=== PATIENT | female | born 1990 | race Caucasian/White ===

== ENCOUNTER 2024-01-14 20:57 | Emergency (ER) | payer MEDICAID ==
[~2024-01-14] VITALS: Ht 152.4 cm; Wt 63.5 kg
[~2024-01-14 20:57] MED LIST: CEPH-588 PO; ROBAC PO
[2024-01-14 22:03] VITALS: BP 130/80; PULSE 68; RESP 18; TEMP 97.8; O2SAT 99
[2024-01-14 23:42] LABS: BASOPHILS # (AUTO) 0.1 K/uL (0.00-0.22); BASOPHILS % (AUTO) 0.9 % (0.0-2.0); EOSINOPHILS # (AUTO) 0.2 K/uL (0-0.4); EOSINOPHILS % (AUTO) 2.2 % (0.0-4.0); HEMATOCRIT 37.1 % (36-48); HEMOGLOBIN 12.2 g/dL (12.0-16.0); LYMPHOCYTES # (AUTO) 3.4 K/uL (2.5-16.5); LYMPHOCYTES % (AUTO) 45.2 % (20.5-51.1); MEAN CORPUSCULAR HEMOGLOBIN 28 pg (27-31); MEAN CORPUSCULAR HGB CONC 33 g/dL (33-37); MONOCYTES # (AUTO) 0.7 K/uL (0.8-1.0); MONOCYTES % (AUTO) 8.9 % (1.7-9.3); NEUTROPHILS # (AUTO) 3.2 K/uL (1.8-7.7); NEUTROPHILS % (AUTO) 42.8 % (42.2-75.2); PLATELET COUNT (AUTO) 324 K/uL (140-450); RED BLOOD CELL COUNT(AUTO) 4.31 MIL/uL (4.20-5.40); RED CELL DISTRIBUTION WIDTH 13.8 % (11.6-13.7); WHITE BLOOD COUNT (AUTO) 7.4 K/uL (4.8-10.8)
[2024-01-14] MEDS: ALUMINUM HYD/MAG/SIMETHICONE 30 ML UDC PO ONE (23:48)
[2024-01-14 23:50] LABS: ANION GAP 10.4 (8-16); CALCIUM 8.9 mg/dL (8.5-10.1); CARBON DIOXIDE 29.2 mmol/L (21-32); CREATININE 0.8 mg/dL (0.6-1.3); POTASSIUM 3.6 mmol/L (3.5-5.1)
[2024-01-14] MEDS: ACETAMINOPHEN EXTRA STRENGTH 500 MG TAB PO ONE (23:50)
[2024-01-14] MEDS: KETOROLAC 30 MG/ML VIAL IM ONE (23:52)
[2024-01-14] MEDS: FAMOTIDINE 20 MG TAB PO ONE (23:53)
[2024-01-15] LABS: ALANINE AMINOTRANSFERASE 26 U/L (12-78); ALBUMIN 3.9 g/dL (3.4-5.0); ALKALINE PHOSPHATASE 92 U/L (50-136); ASPARTATE AMINOTRANSFERASE 18 U/L (15-37); BILIRUBIN,DIRECT 0.1 mg/dL (0.0-0.3); TOTAL BILIRUBIN 0.2 mg/dL (0.0-1.0); TOTAL PROTEIN, SERUM 8.5 g/dL (6.4-8.2)
[2024-01-15] MEDS ORDERED: ACET-10509 PO (00:41)
[2024-01-15] MEDS ORDERED: FAMO-90 PO (00:41)
[2024-01-15 00:52] VITALS: BP 130/80; PULSE 68; RESP 18; TEMP 97.8; O2SAT 99
== END 2024-01-15 00:52 | disposition home or self-care (01) ==
LOC: MED 20:57
DX: R07.9 Chest pain, unspecified (principal); R51.9 Headache, unspecified; Z79.899 Other long term (current) drug therapy
CPT/HCPCS: 36415; 71045; 80048; 80076; 81025; 84484; 85025; 93005; 96372; 99285; J1885